=== PATIENT | female | born 1970 | race Two or more races ===

== ENCOUNTER 2016-12-08 20:22 | Emergency (ER) | payer OTHER ==
[2016-12-08 20:28] VITALS: RESP 18; TEMP 98.6
--- NOTE | 2016-12-08 20:45 | EDPHY ---
H & P Stated Complaint: Right Flank pain Time Seen by Provider: 12/08/16 20:45 - Personal History LMP (Females 10-55): 1-7 Days Ago Current Tetanus/Diphtheria Vaccine: Yes Current Tetanus Diphtheria and Acellular Pertussis (TDAP): Yes - Medical/Surgical History Hx Asthma: No Hx Chronic Respiratory Disease: No Hx Diabetes: No Hx Cardiac Disease: No Hx Renal Disease: No Hx Cirrhosis: No Hx Alcoholism: No Hx HIV/AIDS: No Hx Splenectomy or Spleen Trauma: No Other PMH: PMH: kidney stones - Social History Smoking Status: Never smoked Constitutional: Initial Vital Signs Temperature (C) 37.0 C 12/08/16 20:25 Heart Rate 73 12/08/16 20:25 Respiratory Rate 18 12/08/16 20:25 Blood Pressure 158/89 H 12/08/16 20:25 O2 Sat (%) 100 12/08/16 20:25 O2 Delivery Mode Room Air Allergies/Adverse Reactions: No Known Allergies Allergy (Unverified 12/08/16 20:28) Home Medications: Medication Instructions Recorded HYDROcodone/APAP [[place] 1 - 2 each PO Q4-6PRN PRN #20 tab 12/08/16 10/325] Medical Decision Making - Diagnostics Imaging Results: Imaging Impressions Abdomen/Pelvis CT 12/08/16 20:58 Impression: 1. Two 5 mm distal right ureteral stones with moderate obstructive uropathy. 2. Nonobstructing left nephrolithiasis. 3. Additional findings as above Findings discussed with Nolan Garcia MD 12/08/2016 at 22:48. Attention: This CT examination is specifically designed to evaluate patients who are clinically suspected of having acute obstructive uropathy. This examination does not use radiographic contrast, and as such, provides only a limited evaluation of the abdomen, pelvis and retroperitoneum. If there is further clinical suspicion for pathological conditions other than obstructive uropathy, a complete CT evaluation of the abdomen and pelvis utilizing intravenous and oral contrast should be considered. Imaging: Discussed imaging studies w/ customer success associate Radiologist, I viewed and interpreted images myself ED Course/Re-evaluation: CHIEF COMPLAINT: Abdominal pain, nausea, vomiting HISTORY OF PRESENT ILLNESS: The patient is a 46 y/o female who presents with a sudden, sharp, right-sided abdominal pain at dinner, several hours ago. She has a history of a kidney stone, and had a lithotripsy performed in the past. Following the pain during dinner she began to vomit and has since been nauseas. She attributes this nausea and vomiting to the pain. Denies abdominal surgery, dysuria, diarrhea, chest pain, fever, or other pertinent symptoms. REVIEW OF SYSTEMS: A 10 point review of systems was performed and is negative with the exception of the elements mentioned in the history of present illness. PHYSICAL EXAM: HR, BP, O2 Sat, RR. Temp noted General Appearance: Alert, well hydrated, appropriate, and non-toxic appearing. Head: Atraumatic without scalp tenderness or obvious injury Eyes: Pupils equal, round, reactive to light and accommodation, EOMI, no trauma , no injection. Ears: Clear bilaterally, no perforation, normal landmarks Nose: Atraumatic, no rhinorrhea, clear. Throat: Mucus membranes moist. Neck: Supple, 2+ carotid upstroke, nontender, no lymphadenopathy. Respiratory: No retractions, no distress, no wheezes, and no accessory muscle use. Lungs are clear to auscultation bilaterally. Cardiovascular: Regular rate and rhythm, no murmurs, rubs, or gallops. Good capillary refill all extremities. Gastrointestinal: Abdomen is soft, nontender (I am palpating where she describes the pain and I am unable to reproduce her pain), non-distended, no masses, no rebound, no guarding, no peritoneal signs. Musculoskeletal: Normal active ROM of all extremities, atraumatic. Neurological: Alert, appropriate, and interactive. Non-focal neuro. Skin: No rashes, good turgor, no nodules on palpation. Past medical history: Kidney stones Past surgical history: Lithotripsy Family history: Noncontributory Social history: at bedside, non-smoker, lives in [place], works for [employer] DIAGNOSTICS/PROCEDURES/CRITICAL CARE TIME: Abdominal CT w/o contrast: 2 kidney stones, 4 and 6mm in diameter. Laboratory results: blood in urine DIFFERENTIAL DIAGNOSIS: The differential diagnosis for the patient's abdominal pain included but was not limited to kidney stones, ovarian cyst, pelvic inflammatory disease, ovarian torsion, urinary tract infection, ectopic , cholecystitis, and appendicitis. MEDICAL DECISION MAKING: The patient is a 46 y/o female who presents with moderate RLQ pain with sudden onset this several hours ago. She has a history of kidney stones. On exam I am not able to reproduce the pain upon palpation. Plan on labs, IV, abdominal CT, and pain management. 1000L IV NS, 1mg IV Dilaudid, 30mg IV Ketorolac, and 4mg IV Zofran administered. 2245: Spoke with Dr. Velasco, radiologist. He reports that the patient has two kidney stones. I will send her home with a prescription with [facility] and a urology follow up. Reassessed patient and discussed imaging findings. Return precautions provided; patient is comfortable with this plan. - Data Points Laboratory Results: Laboratory Results 12/08/16 21:20 12/08/16 21:20 12/08/16 12/08/16 12/08/16 21:20 21:20 21:20 WBC 8.67 10^3/uL 10^3/uL (3.80-9.50) RBC 4.30 10^6/uL 10^6/uL (4.18-5.33) Hgb 11.1 g/dL L g/dL (12.6-16.3) Hct 35.9 % L % (38.0-47.0) MCV 83.5 fL fL (81.5-99.8) MCH 25.8 pg L pg (27.9-34.1) MCHC 30.9 g/dL L g/dL (32.4-36.7) RDW 16.5 % H % (11.5-15.2) Plt Count 308 10^3/uL 10^3/uL (150-400) MPV 9.7 fL fL (8.7-11.7) Neut % (Auto) 53.6 % % (39.3-74.2) Lymph % (Auto) 36.0 % % (15.0-45.0) [place] % (Auto) 9.0 % % (4.5-13.0) Eos % (Auto) 0.8 % % (0.6-7.6) Baso % (Auto) 0.3 % % (0.3-1.7) Nucleat RBC Rel Count 0.0 % % (0.0-0.2) Absolute Neuts (auto) 4.64 10^3/uL 10^3/uL (1.70-6.50) Absolute Lymphs (auto) 3.12 10^3/uL H 10^3/uL (1.00-3.00) Absolute Monos (auto) 0.78 10^3/uL 10^3/uL (0.30-0.80) Absolute Eos (auto) 0.07 10^3/uL 10^3/uL (0.03-0.40) Absolute Basos (auto) 0.03 10^3/uL 10^3/uL (0.02-0.10) Absolute Nucleated RBC 0.00 10^3/uL 10^3/uL (0-0.01) Immature Gran % 0.3 % % (0.0-1.1) Immature Gran # 0.03 10^3/uL 10^3/uL (0.00-0.10) Sodium 136 mEq/L mEq/L (134-144) Potassium 3.7 mEq/L mEq/L (3.5-5.2) Chloride 102 mEq/L mEq/L (97-110) Carbon Dioxide 23 mEq/l mEq/l (22-31) Anion Gap 11 mEq/L mEq/L (8-16) BUN 19 mg/dL mg/dL (7-23) Creatinine 0.7 mg/dL mg/dL (0.6-1.0) Estimated GFR > 60 Glucose 97 mg/dL mg/dL (70-100) Calcium 9.0 mg/dL mg/dL (8.5-10.4) Beta HCG, Qual NEGATIVE Urine Color Urine Appearance Urine pH Ur Specific [place] Urine Protein Urine Ketones Urine Blood Urine Nitrate Urine Bilirubin Urine Urobilinogen Ur Leukocyte Esterase Urine RBC Urine WBC Ur Epithelial Cells Uric Acid Crystals Urine Bacteria Urine Mucus Urine Glucose 12/08/16 20:40 WBC RBC Hgb Hct MCV MCH MCHC RDW Plt Count MPV Neut % (Auto) Lymph % (Auto) [place] % (Auto) Eos % (Auto) Baso % (Auto) Nucleat RBC Rel Count Absolute Neuts (auto) Absolute Lymphs (auto) Absolute Monos (auto) Absolute Eos (auto) Absolute Basos (auto) Absolute Nucleated RBC Immature Gran % Immature Gran # Sodium Potassium Chloride Carbon Dioxide Anion Gap BUN Creatinine Estimated GFR Glucose Calcium Beta HCG, Qual Urine Color YELLOW Urine Appearance HAZY Urine pH 5.0 (5.0-7.5) Ur Specific [place] 1.023 (1.002-1.030) Urine Protein NEGATIVE (NEGATIVE) Urine Ketones NEGATIVE (NEGATIVE) Urine Blood 1+ H (NEGATIVE) Urine Nitrate NEGATIVE (NEGATIVE) Urine Bilirubin NEGATIVE (NEGATIVE) Urine Urobilinogen NEGATIVE EU EU (0.2-1.0) Ur Leukocyte Esterase NEGATIVE (NEGATIVE) Urine RBC 25-50 /hpf H /hpf (0-3) Urine WBC 1-3 /hpf /hpf (0-3) Ur Epithelial Cells TRACE /lpf /lpf (NONE-1+) Uric Acid Crystals PRESENT /hpf /hpf (NONE-1+) Urine Bacteria TRACE /hpf H /hpf (NONE SEEN) Urine Mucus 1+ /lpf /lpf (NONE-1+) Urine Glucose NEGATIVE (NEGATIVE) Medications Given: Discontinued Medications Hydromorphone HCl (Dilaudid) 0.5 mg IVP EDNOW ONE Stop: 12/08/16 20:58 Last Admin: 12/08/16 21:30 Dose: Not Given Sodium Chloride (Ns) 1,000 mls @ 0 mls/hr IV EDNOW ONE; Wide Open PRN Reason: Protocol Stop: 12/08/16 20:58 Last Admin: 12/08/16 21:26 Dose: 1,000 mls Ketorolac Tromethamine (Toradol) 30 mg IVP EDNOW ONE Stop: 12/08/16 20:58 Last Admin: 12/08/16 21:28 Dose: 30 mg Ondansetron HCl (Zofran) 4 mg IVP EDNOW ONE Stop: 12/08/16 20:58 Last Admin: 12/08/16 21:27 Dose: 4 mg Departure - Departure Disposition: Home, Routine, Self-Care Clinical Impression: Kidney stone Abdominal pain Qualifiers: Abdominal location: right lower quadrant Qualified Code(s): R10.31 - Right lower quadrant pain Condition: Good Instructions: Hydrocodone/Acetaminophen (By mouth), Kidney Stones (ED) Additional Instructions: 1. Take 600mg of ibuprofen every 6-8 hours as needed for pain. 2. Take [place] as prescribed for severe pain. 3. Follow up with Dr. Christensen, urologist, in 3-5 days without fail. 4. Return to the ED if you experience numbness in your genitals, blood in your urine, weakness, severe abdominal pain, or other severe worsening of your symptoms. Referrals: NONE *PRIMARY CARE P,. [Primary Care Provider] - As per Instructions Jerrell Christensen MD [Medical Doctor] - As per Instructions Prescriptions: HYDROcodone/APAP [[place] ] 1 - 2 each PO Q4-6PRN PRN #20 tab PRN Reason: Pain, Moderate Report Scribed for: Nolan Garcia Report Scribed by: Blank Calderon Date of Report: 12/08/16 Time of Report: 20:49
[2016-12-08] MEDS ORDERED: NS 1,000 ML IV ONE (20:57)
[2016-12-08] MEDS ORDERED: ONDANSETRON 4 MG/2 ML VIAL IVP ONE (20:57)
[2016-12-08] MEDS ORDERED: KETOROLAC 30 MG/1 ML SDV IVP ONE (20:57)
[2016-12-08] MEDS ORDERED: HYDROmorphONE/DILAUDID 1 MG/ML INJ IVP ONE (20:57)
[2016-12-08 21:24] LABS: % IMMATURE GRANULYOCYTES 0.3 % (0.0-1.1); ABSOLUTE IMMATURE GRANULOCYTES 0.03 10^3/uL (0.00-0.10); ADD DIFF? NO; ADD MORPH? NO; ADD SCAN? NO; ATYPICAL LYMPHOCYTE FLAG 10 (0-99); FRAGMENT RBC FLAG 0 (0-99); HEMATOCRIT 35.9 % (38.0-47.0); HEMOGLOBIN 11.1 g/dL (12.6-16.3); LEFT SHIFT FLG 0 (0-99); LIPEMIA HEMOLYSIS FLAG 80 (0-99); MEAN CELL HEMOGLOBIN 25.8 pg (27.9-34.1); MEAN CELL HEMOGLOBIN CONCENTR. 30.9 g/dL (32.4-36.7); MEAN CELL VOLUME 83.5 fL (81.5-99.8); MEAN PLATELET VOLUME 9.7 fL (8.7-11.7); PLATELET CLUMPS FLAG 10 (0-99); PLATELET COUNT 308 10^3/uL (150-400); RED CELL DISTRIBUTION WIDTH 16.5 % (11.5-15.2)
[2016-12-08 21:38] LABS: COLOR YELLOW; LEUKOCYTE ESTERASE,URINE NEGATIVE (NEGATIVE); NITRITE,URINE NEGATIVE (NEGATIVE)
[2016-12-08 21:41] LABS: BACTERIA TRACE /hpf (NONE SEEN); MUCUS 1+ /lpf (NONE-1+); RBC,URINE 25-50 /hpf (0-3)
[2016-12-08 21:45] LABS: ANION GAP 11 mEq/L (8-16); CARBON DIOXIDE 23 mEq/l (22-31); CHLORIDE 102 mEq/L (97-110); CREATININE 0.7 mg/dL (0.6-1.0); GLOMERULAR FILTRATION RATE > 60; GLUCOSE 97 mg/dL (70-100); POTASSIUM 3.7 mEq/L (3.5-5.2); SODIUM 136 mEq/L (134-144)
[2016-12-08 23:21] VITALS: BP 133/83; PULSE 67; O2SAT 95
== END 2016-12-08 23:21 | disposition home or self-care (01) ==
DX: N20.0 Calculus of kidney (principal); E86.9 Volume depletion, unspecified
CPT/HCPCS: 96374; J1170; J1885; J2405

== ENCOUNTER 2017-05-29 17:05 | Inpatient (IN) | payer OTHER ==
--- NOTE | 2017-05-29 18:14 | EDPHY ---
HPI/HX/ROS/PE/MDM Narrative: CHIEF COMPLAINT: Fever, post ureteral stent removal HISTORY OF PRESENT ILLNESS: The patient is a 46 y/o female complaining of a subjective fever secondary to a ureteral stent removal on 05/28/17, 1 day ago, at [facility] The stents were initially placed for kidney stones (5mm or smaller). The kidney stones were initially diagnosed in December 2016. When they initially placed the stents they noticed she had an infection and placed her on antibiotics. The stents were placed 2 weeks ago, the left stent became dislodged so they had to replace it. After the stents were removed yesterday she had no pain and was able to go to work. She developed minor urethral pain and took Tylenol that afternoon. Per her daughter, the patient has had a fever all day today and has been more sweaty than normal. Daughter was concerned because she seems somewhat confused earlier. She has also had painful urination and some suprapubic discomfort. No abdominal or back pain. No chills, chest pain, shortness of breath, palpitations, vomiting, diarrhea, headache, lightheadedness. No history of CAD or seizures. REVIEW OF SYSTEMS: Aside from elements discussed in the HPI, a comprehensive 10-point review of systems was reviewed and is negative. PAST MEDICAL HISTORY: Kidney stones, ureteral stent removal (05/27/17) SOCIAL HISTORY: Daughter at bedside, lives in [place], single, works for [employer] VITAL SIGNS: Temp: 39 decrees, BP: 122/75 others reviewed by me GENERAL: Well-developed, well-nourished, resting comfortably in no respiratory distress. HEENT: Atraumatic. Eyes: No icterus, no injection. Mouth: moist mucous membranes. No erythema or lesions. Neck: supple with no adenopathy. LUNGS: Clear to auscultation bilaterally, no wheezes, rhonchi or rales. CARDIAC: Regular rate and rhythm, no rubs, murmurs or gallops. ABDOMEN: Mild suprapubic tenderness. Soft, nondistended, bowel sounds normal. BACK: No CVA tenderness. EXTREMITIES: No trauma. No edema. Range of motion is normal throughout. NEURO: Alert and oriented, grossly nonfocal. SKIN: Warm and dry, no rash. PSYCHIATRIC: Normal mentation, no agitation. Portions of this note were transcribed by a medical coding specialist. I personally performed a history, physical exam, medical decision making, and confirmed accuracy of information the transcribed note. ED Course: The patient is a 46 y/o female presenting with a fever, 39 degrees, 1 day post ureteral stent removal. Family noticed some confusion. Patient has been complaining of suprapubic discomfort occasionally as well as dysuria. No hematuria. Labs ordered. 1L IV NS administered. Severe Sepsis/Septic Shock Care Note The patient presents to the ED with urinary tract infection identified as an acute infection. The patient did have evidence of end-organ dysfunction and met criteria for severe sepsis. This condition was identified by myself at 1843. The patients vital signs are 120/71, 84, 18, 38.1. The patient has a venous lactic acid performed within 3 hours of the identification of severe sepsis which was found to be 2.4. The patient has blood cultures drawn and received ceftriaxone IV, per the severe sepsis treatment protocol. The initial lactate was elevated and rechecked within 6 hours of the identification time of severe sepsis and found to be: 2.1. 1929: Reassessed patient and discussed laboratory findings. Her temperature is currently 38.1 degrees. I have also discussed plan for admission for her severe sepsis; patient and her daughter are comfortable with this plan. 1939: Consulted with hospitalist service, Dr. Mccullough accepts admission of this patient. 1939: Consulted with Dr. Giraldo, Emergency case management at [facility]. [facility] is aware the patient has a strong preference to be admitted to [facility]. 2009: Reassessed patient, she prefers to be admitted to this hospital as opposed to [facility]. She understands that this may result in increased co-pay. MDM: Differential diagnosis for fever in adults was considered including but not limited to pneumonia, urinary tract infection, viral syndrome, cellulitis, sepsis, pyelonephritis, and influenza. - Data Points Laboratory Results: Laboratory Results 05/29/17 17:48 05/29/17 17:48 05/29/17 05/29/17 05/29/17 19:14 18:25 17:48 WBC RBC Hgb Hct MCV MCH MCHC RDW Plt Count MPV Neut % (Auto) Lymph % (Auto) [place] % (Auto) Eos % (Auto) Baso % (Auto) Nucleat RBC Rel Count Absolute Neuts (auto) Absolute Lymphs (auto) Absolute Monos (auto) Absolute Eos (auto) Absolute Basos (auto) Absolute Nucleated RBC Immature Gran % Immature Gran # PT INR APTT VBG Lactic Acid 2.1 mmol/L mmol/L (0.7-2.1) Sodium 138 mEq/L mEq/L (135-145) Potassium 3.7 mEq/L mEq/L (3.5-5.2) Chloride 103 mEq/L mEq/L (97-110) Carbon Dioxide 19 mEq/l L mEq/l (22-31) Anion Gap 16 mEq/L mEq/L (8-16) BUN 12 mg/dL mg/dL (7-23) Creatinine 0.7 mg/dL mg/dL (0.6-1.0) Estimated GFR > 60 Glucose 136 mg/dL H mg/dL (70-100) Calcium 9.6 mg/dL mg/dL (8.5-10.4) Total Bilirubin 0.4 mg/dL mg/dL (0.1-1.4) Urine Color PALE YELLOW Urine Appearance HAZY Urine pH 6.0 (5.0-7.5) Ur Specific [place] 1.008 (1.002-1.030) Urine Protein NEGATIVE (NEGATIVE) Urine Ketones NEGATIVE (NEGATIVE) Urine Blood 2+ H (NEGATIVE) Urine Nitrate NEGATIVE (NEGATIVE) Urine Bilirubin NEGATIVE (NEGATIVE) Urine Urobilinogen NEGATIVE EU EU (0.2-1.0) Ur Leukocyte Esterase 2+ H (NEGATIVE) Urine RBC 5-10 /hpf H /hpf (0-3) Urine WBC 50-182 /hpf H /hpf (0-3) Ur Epithelial Cells TRACE /lpf /lpf (NONE-1+) Urine Mucus TRACE /lpf /lpf (NONE-1+) Urine Glucose NEGATIVE (NEGATIVE) 05/29/17 05/29/17 05/29/17 17:48 17:48 17:48 WBC 14.63 10^3/uL H 10^3/uL (3.80-9.50) RBC 4.35 10^6/uL 10^6/uL (4.18-5.33) Hgb 12.8 g/dL g/dL (12.6-16.3) Hct 39.1 % % (38.0-47.0) MCV 89.9 fL fL (81.5-99.8) MCH 29.4 pg pg (27.9-34.1) MCHC 32.7 g/dL g/dL (32.4-36.7) RDW 13.3 % % (11.5-15.2) Plt Count 317 10^3/uL 10^3/uL (150-400) MPV 10.2 fL fL (8.7-11.7) Neut % (Auto) 82.3 % H % (39.3-74.2) Lymph % (Auto) 10.5 % L % (15.0-45.0) [place] % (Auto) 6.4 % % (4.5-13.0) Eos % (Auto) 0.1 % L % (0.6-7.6) Baso % (Auto) 0.2 % L % (0.3-1.7) Nucleat RBC Rel Count 0.0 % % (0.0-0.2) Absolute Neuts (auto) 12.04 10^3/uL H 10^3/uL (1.70-6.50) Absolute Lymphs (auto) 1.54 10^3/uL 10^3/uL (1.00-3.00) Absolute Monos (auto) 0.94 10^3/uL H 10^3/uL (0.30-0.80) Absolute Eos (auto) 0.01 10^3/uL L 10^3/uL (0.03-0.40) Absolute Basos (auto) 0.03 10^3/uL 10^3/uL (0.02-0.10) Absolute Nucleated RBC 0.00 10^3/uL 10^3/uL (0-0.01) Immature Gran % 0.5 % % (0.0-1.1) Immature Gran # 0.07 10^3/uL 10^3/uL (0.00-0.10) PT 13.5 SEC SEC (12.0-15.0) INR 1.01 (0.83-1.16) APTT 26.9 SEC SEC (23.0-38.0) VBG Lactic Acid 2.4 mmol/L H mmol/L (0.7-2.1) Sodium Potassium Chloride Carbon Dioxide Anion Gap BUN Creatinine Estimated GFR Glucose Calcium Total Bilirubin Urine Color Urine Appearance Urine pH Ur Specific [place] Urine Protein Urine Ketones Urine Blood Urine Nitrate Urine Bilirubin Urine Urobilinogen Ur Leukocyte Esterase Urine RBC Urine WBC Ur Epithelial Cells Urine Mucus Urine Glucose Medications Given: Acetaminophen (Tylenol) 1,000 mg PO Q8 ARMINDA Stop: 11/25/17 21:59 Last Admin: 05/29/17 21:56 Dose: 1,000 mg Sodium Chloride (Ns) 1,000 mls @ 200 mls/hr IV CONT ARMINDA Stop: 11/25/17 20:59 Last Admin: 05/29/17 21:57 Dose: 1,000 mls Discontinued Medications Acetaminophen (Tylenol) 1,000 mg PO EDNOW ONE Stop: 05/29/17 18:54 Last Admin: 05/29/17 18:56 Dose: 1,000 mg Sodium Chloride (Ns) 2,000 mls @ 0 mls/hr IV ONCE ONE PRN Reason: Wide Open Stop: 05/29/17 18:40 Last Admin: 05/29/17 18:40 Dose: 2,000 mls Ceftriaxone Sodium/Dextrose (Rocephin 1 Gm (Premix)) 50 mls @ 100 mls/hr IV EDNOW ONE PRN Reason: Protocol Stop: 05/29/17 19:10 Last Admin: 05/29/17 20:00 Dose: 50 mls Sodium Chloride (Ns) 2,100 mls @ 4,200 mls/hr 30 ml/kg infuse over 30 min ( 2100 ml) IV EDNOW ONE PRN Reason: Protocol Stop: 05/29/17 19:10 Last Admin: 05/29/17 18:58 Dose: 2,100 mls General Time Seen by Provider: 05/29/17 18:03 Initial Vital Signs: Initial Vital Signs Temperature (C) 39 C H 05/29/17 17:08 Heart Rate 101 H 05/29/17 17:08 Respiratory Rate 18 05/29/17 17:08 Blood Pressure 109/65 05/29/17 17:08 O2 Sat (%) 97 05/29/17 17:08 O2 Delivery Mode Room Air Allergies/Adverse Reactions: No Known Allergies Allergy (Verified 05/29/17 17:07) Home Medications: Medication Instructions Recorded Acetaminophen [Tylenol ES 500 mg 500 mg PO Q6 05/29/17 (*)] Departure - Departure Disposition: [facility] Inpatient Acute Clinical Impression: urosepsis Sepsis Qualifiers: Sepsis type: sepsis due to unspecified organism Qualified Code(s): A41.9 - Sepsis, unspecified organism UTI (urinary tract infection) Qualifiers: Urinary tract infection type: site unspecified Hematuria presence: without hematuria Qualified Code(s): N39.0 - Urinary tract infection, site not specified Condition: Fair Report Scribed for: Saray Horta Report Scribed by: Blank Calderon Date of Report: 05/29/17 Time of Report: 18:14
[2017-05-29 18:23] LABS: PLATELET COUNT 317 10^3/uL (150-400)
[2017-05-29 18:26] LABS: INR 1.01 (0.83-1.16); PROTIME(PATIENT) 13.5 SEC (12.0-15.0)
[2017-05-29] MEDS ORDERED: NS 2,000 ML IV ONE (18:39)
[2017-05-29] MEDS ORDERED: NS 2,100 ML IV ONE (18:41)
[2017-05-29] MEDS ORDERED: ACETAMINOPHEN 500 MG TAB PO ONE (18:53)
[2017-05-29] MEDS ORDERED: HYDROmorphone HCL/NS 0.5 MG/ML SYR IVP PRN (20:53)
[2017-05-29] MEDS ORDERED: ACETAMINOPHEN 325 MG TAB PO PRN (20:53)
[2017-05-29] MEDS ORDERED: ONDANSETRON 4 MG/2 ML VIAL IVP PRN (20:53)
[2017-05-29] MEDS ORDERED: ONDANSETRON DISINTEGRATING 4 MG TAB PO PRN (20:53)
--- NOTE | 2017-05-29 21:27 | GHP ---
[f rep st] HISTORY AND PHYSICAL DATE OF ADMISSION: 05/29/2017 The patient is a pleasant, 46-year-old female with history of bilateral nephrolithiasis for which mairanna al stents were placed. She had them removed yesterday in an office procedure. She felt well, but th en today she developed a fever and malaise associated with some minor back pain. Patient had fever a ll day and diaphoresis. Ultimately sought care. She was found to be febrile. Regarding the kidney stones, they were present here on a CAT scan performed on December 23. The p atalexandrea says she had stents placed for kidney stones, but they passed spontaneously. The further deta ils are unavailable. This was at an outside hospital. The patient has no nausea. No vomiting. No diarrhea. No shortness of breath. No chest pain. REVIEW OF SYSTEMS: Complete 10-point review of systems conducted. Negative except as noted in the H PI. PAST MEDICAL HISTORY: Nephrolithiasis. SOCIAL HISTORY: She is a teacher at [employer]. She does not smoke cigarettes or drink alcohol. She has 2 children. FAMILY HISTORY: Reviewed and unremarkable. No known drug allergies. HOME MEDICATIONS: Tylenol. PHYSICAL EXAMINATION: VITAL SIGNS: Presenting vitals, temp 38, blood pressure 122/75, pulse 89, lee ann athing 18 times a minute, 96% on room air. GENERAL: No acute distress. HEENT: Sclerae anicteric. Oropharynx clear. Mucous membranes moist. NECK: Supple without lymphadenopathy or JVD. LUNGS: C lear to auscultation bilaterally. HEART: S1, S2. Not tachycardic. ABDOMEN: Soft, nontender, nond istended. There is no back pain. EXTREMITIES: Lower extremities without edema. Calves nontender. SKIN: Without rash. NEUROLOGIC: Nonfocal. LABS: White count 14.6, with a left shift. Hematocrit 39.9, platelets 317,000. Coags normal. Veno us lactate is 2.4. Fell to 2.1. Sodium 138, potassium 3.7, chloride 103, bicarb 19, BUN 12, creatin ine 0.7, glucose 136, bilirubin 0.4. UA shows 50-182 white cells, 2+ leukocyte esterase. There is no imaging. I have discussed the case Dr. Saray Horta. ASSESSMENT/PLAN: This is a 46-year-old female with fever and sepsis. 1. Sepsis. This patient has severe sepsis by criteria. 2. Urinary tract infection. The patient has been treated with ceftriaxone. I will continue this fo r now. If she does not defervesce within the first 24 hours or less, it is worth considering broaden ing coverage for nosocomial organisms. I think the patient has limited interaction with the [facility]. It is probably reasonable to proceed with ceftriaxone. 3. Fever. Scheduled Tylenol. 4. Acidosis. The patient has a mild acidosis. Will repeat her labs in the morning. She has been v olume resuscitated. 5. Prophylaxis. Pharmacologic prophylaxis indicated with low molecular weight heparin. /[id number]/MODL
[2017-05-29] MEDS: ACETAMINOPHEN 500 MG TAB PO SCH (21:56)
[2017-05-29] MEDS: NS 1,000 ML IV SCH (21:57)
[2017-05-29] MEDS ORDERED: ACETAMINOPHEN 325 MG TAB PO SCH (22:00)
[2017-05-30] MEDS: ACETAMINOPHEN 500 MG TAB PO SCH ×2 (05:18→14:13)
[2017-05-30 07:34] LABS: PLATELET COUNT 263 10^3/uL (150-400)
[2017-05-30 07:44] LABS: INR 1.21 (0.83-1.16); PROTIME(PATIENT) 15.5 SEC (12.0-15.0)
[2017-05-30] MEDS: NS 1,000 ML IV SCH (08:08)
[2017-05-30] MEDS ORDERED: ENOXAPARIN 40 MG/0.4 ML SYR SC SCH (09:00)
[2017-05-30] MEDS ORDERED: cefTRIAXone 1 GM in STERILE WATER INJ 10 ML IV SCH (09:00)
[2017-05-30] MEDS ORDERED: PROTOCOL POTASSIUM 1 DOSE MISC PRN (09:20)
--- NOTE | 2017-05-30 09:25 | HOSPPROG ---
Hospitalist Progress Note Assessment/Plan: Severe sepsis 2/2 UTI - (Fever, HR, leukocysotis). No hypotension. Lactate normalized, but wbc's up to 20K and fevers persist. She is s/p ureteral stent removal [address] [employer]. U/S with mild hydro on left, no shadowing suggestive of stone or obstruction. -broaden to Zosyn while awaiting culture data given recent hospitalization and instrumentation -cont IVF's, anti-pyretics H/O nephrolithiasis - s/p ureteral stent removal -CT urogram if not improving to definitively r/o recurrent stone, though seems unlikely with stents just removed Hypokalemia - replace per protocol AGMA - could be lactic acidosis with elevated lactate on arrival vs starvation ketosis -cont IVF's and follow DVT PPLX - Lovenox Dispo - inpt Subjective: Pt is tired. Feels better, fevers not as strong, but still fevering. No abdominal pain, N/V. She did have some dysuria, but no flank pain. Poor appetite. She was told by [facility] 2 days ago there are no stones. Objective: Vital Signs Temp Pulse Resp BP Pulse Ox 38.6 C H 95 20 110/70 94 05/30/17 07:14 05/30/17 07:14 05/30/17 07:14 05/30/17 07:14 05/30/17 07:14 Laboratory Results 05/30/17 07:26 05/30/17 07:26 05/29/17 05/30/17 05/31/17 05:59 05:59 05:59 Intake Total 250 1695 Balance 250 1695 PT 15.5 SEC (12.0-15.0) H 05/30/17 07:26 INR 1.21 (0.83-1.16) H 05/30/17 07:26 - Physical Exam Constitutional: no apparent distress Eyes: PERRL Ears, Nose, Mouth, Throat: moist mucous membranes Cardiovascular: regular rate and rhythym Respiratory: no respiratory distress, clear to auscultation Gastrointestinal: normoactive bowel sounds, soft, non-tender abdomen Skin: warm Musculoskeletal: full muscle strength Neurologic: AAOx3 Psychiatric: interacting appropriately ICD10 Worksheet Patient Problems: Problems Problem Status Onset Sepsis Acute UTI (urinary tract infection) Acute
[2017-05-30] MEDS ORDERED: POTASSIUM CL 10 MEQ TAB PO ONE (09:29)
[2017-05-30] MEDS ORDERED: NS W/ 20 KCl/L 1,000 ML IV SCH (09:30)
--- NOTE | 2017-05-30 09:42 | PDMN ---
Medical Necessity Medical necessity: M160 sepsis and other febrile illness: HR 101, BP 109/65, temp 39, UTI, mild acidosis, WBC 14.6/ 19.5 cont to monitor and tx. anticipate > 2 midnights
[2017-05-30] MEDS: PIPERACILLIN/TAZO 3.375 GM/DEX 50 ML IV SCH ×2 (12:05→17:12)
--- NOTE | 2017-05-30 12:26 | ASMTCMCOM ---
CM Note CM Note Notes: Received call from Leia at [facility], they request that if pt is stable and will need a few days of hospitalization, that she be transferred. The [facility] facility in [place] does not have any beds and she would have to go to [facility]. If pt refuses, [facility] will not authorized this hospital stay and she will be responsible for the bill. CM met with pt and discussed this with her, I advised her of my conversation with Leia, and that she would be transferred to [facility] and that if she still refuses transfer as she did when in the ER, they would not pay for this hospitalization. Pt states she is not interested in transferring, " every time I go to [facility], I get sicker and sicker". Pt asks CM to find out how much hospital bill angelique be. CM contacted Theodora Carballo in [facility] to come and meet with pt. Doctor Payne notified, ANTHONY w/f Date Signed: 05/30/2017 12:25 PM Electronically Signed By:Renita Boudreaux RN
[2017-05-30] MEDS ORDERED: IBUPROFEN 600 MG TAB PO ONE (14:36)
--- NOTE | 2017-05-30 15:05 | ASMTCMCOM ---
CM Note CM Note Notes: Went in with Kyara Haris from financial counseling to speak with pt regarding self pay status. Per Kyara, pt can choose to stay as "self pay" and can get a 60% discount if she pays a $4000.00 downpayment today but bill is estimated to be approximately around $ 20,000.00. Pt agrees to transfer to [facility] in [place]. Leia at [facility] notified and will arrange transport to pick pt up at 6pm, so that her daughter who is with her will be picked up by her sister. and RN notified DC Plan: Transfer to [facility] Date Signed: 05/30/2017 03:04 PM Electronically Signed By:Renita Boudreaux RN
[2017-05-30 15:38] VITALS: BP 124/65; PULSE 94; RESP 20; TEMP 100; O2SAT 95
--- NOTE | 2017-05-30 16:51 | GDS ---
[f rep st] DISCHARGE SUMMARY DISCHARGE DIAGNOSES: 1. Severe sepsis secondary to urinary tract infection. 2. History of nephrolithiasis with recent bilateral stent removal. 3. Hypokalemia, resolved. 4. Anion gap metabolic acidosis in the setting of lactic acidosis. 5. Leukocytosis. 6. Hypokalemia. HISTORY OF DETAILS: Please see the History and Physical dated May 29, 2017. In brief. Ms. Luis Antonio taylor is a 46-year-old female with a history of nephrolithiasis, who had bilateral ureteral stents chris albino 1 day prior to admission. Within 24 hours, she developed a fever and malaise associated with dys uria. She denied flank pain. In the emergency department, urinalysis was suggestive of UTI. She wa s admitted to the hospital for further management. HOSPITAL COURSE: Patient admitted to Med-Surg unit. She did meet criteria for severe sepsis with fe elisabeth, tachycardia and elevated lactate. She was given 30 mL/kilos IV normal saline bolus and continue d on IV fluids. She had no hypotension. Her lactate on arrival was 2.4. This is normalized to 0.8 at the time of discharge. She was treated with ceftriaxone. However, her white blood cell count inc reased from 14,000 to 20,000 this morning and her fevers persist. Therefore, her coverage was broade nayan to [facility] due to recent hospitalization and urologic instrumentation. Blood cultures and urine cu lture remain pending. She is a [facility] patient and [facility] contacted our facility requesting transfer. She is hemodynamically stable. Vital signs at the time of this dictation are as follows. Temperat ure is 37.8, blood pressure 124/65, heart rate 94, respiratory rate 20, she is 95% on room air. I ag ree with transfer to [facility] as this is where her urologist is. If she does not start to imp rove with resolution of fevers and decreasing white cell count, I was planning for CT urogram to rule out recurrent stone. She did have a renal ultrasound here which showed mild left hydronephrosis. DISPOSITION: Patient is transferred to [facility] for ongoing care. DISCHARGE MEDICATIONS: Please see [facility] for completed outpatient medication list. She will sylvia nue IV antibiotics upon transfer. /[id number]/MODL
== END 2017-05-30 18:05 | disposition short-term general hospital (02) | DRG 871 ==
LOC: F3E 20:19 → OBSVTOIN 20:32
PROVIDERS: ADMIT Internal Medicine; ATTEND Internal Medicine
DX: A41.9 Sepsis, unspecified organism (principal); R65.21 Severe sepsis with septic shock; N39.0 Urinary tract infection, site not specified; E87.2 Acidosis; N13.6 Pyonephrosis; E87.6 Hypokalemia
CPT/HCPCS: 96365; J0696; J1650; J2543